=== PATIENT | male | born 1990 | race Caucasian/White ===

== ENCOUNTER 2017-05-06 02:52 | Observation (INO) ==
[2017-05-06] MEDS ORDERED: Ondansetron 4 MG/2 ML VIAL IVP ONE ×2 (03:11→06:18)
[2017-05-06] MEDS ORDERED: Ketorolac 30 MG/ML VIAL IVP ONE (03:11)
[2017-05-06] MEDS ORDERED: 0.9 % Sodium Chloride 1,000 ML IVC ONE (03:11)
[2017-05-06] MEDS ORDERED: *HR* FentaNYL (PF) 100 MCG/2 ML VIAL IVP ONE (03:12)
[2017-05-06 03:28] LABS: Bilirubin,Urine Negative (Negative); Blood,Urine Negative (Negative); Clarity,Urine Clear (Clear); Color,Urine Yellow (Yellow); Glucose,Urine (UA) Normal (Normal); Ketones,Urine Negative (Negative); Leukocyte Esterase,Urine Small (Negative); Nitrite,Urine Negative (Negative); PH,Urine 6.5 pH Units (5.0-8.0); Protein,Urine Trace mg/dL (Neg-Trace); Urobilinogen,Urine Normal (Normal)
[2017-05-06 03:30] LABS: Bacteria,Urine None Seen per hpf (None-Few); RBC,Urine 0-3 per hpf (0-3); Squamous Epithelial Cell,Urine Many per lpf (None-Few); WBC,Urine 30-50 per hpf (0-3)
[2017-05-06 03:39] LABS: Hyaline Casts,Urine Few per lpf (None-Few); Mucus,Urine Many (Few)
--- NOTE | 2017-05-06 03:39 | Emergency Department Note ---
Disposition Clinical Impression: Acute appendicitis, uncomplicated Disposition: Admitted As Inpatient Condition: Fair Time of Disposition: 05:27 Abdominal Pain HPI - General Chief Complaint: ED Abdominal Pain Stated Complaint: RLQ abd pain Time Seen by Provider: 05/06/17 03:38 Source: patient Mode of arrival: ambulatory Limitations: no limitations Nursing Notes Reviewed: Yes Vital Signs Reviewed: Yes - History of Present Illness HPI Narrative: 26-year-old male presents with 4-5 days of abdominal pain started initially mid abdomen with his right lower quadrant is currently is anxiety 6 out of 10 worse with movement last meal was last night at 8:00 in the evening. Patient history of dysuria for now currently just has abdominal pain he has some gas as well and some nausea but no emesis denies any hematochezia or melena. Patient has a remote history of Hodgkin's lymphoma that he was now in remission for currently no active chemotherapy. Patient endorses smoking cigarettes and marijuana denies any other IV drug use Pt Subjective Complaint: abdominal pain Consistency: intermittent Pain Severity: moderate Pain Scale: 7 Improves with: nothing Worsens with: nothing Associated symptoms: Reports: nausea, vomiting. Denies: diarrhea, fever, chills , dysuria, hematemesis, hematochezia Treatments prior to arrival: none - Related Data Allergies Allergy/AdvReac Type Severity Reaction Status Date / Time promethazine [From Phenergan] Allergy Muscle Pain Verified 05/06/17 02:55 All systems ED: reviewed and negative except as stated. Review of Systems: As Per HPI Constitutional: Denies: fever, chills Eyes: Denies: eye pain ENT ED: Denies: ear pain Cardiovascular: Denies: chest pain, palpitations Respiratory: Denies: dyspnea, sputum production Gastrointestinal: Reports: as per HPI, abdominal pain, nausea. Denies: vomiting , diarrhea Genitourinary: Denies: urgency, dysuria Musculoskeletal: Denies: back pain Integumentary: Denies: rash Neurological: Denies: headache, weakness Psychiatric: Denies: anxiety Abdominal Pain PMH - Past Medical History Medical history: Reports: non-contributory Male Surgical History: Reports: cancer surgery Psychiatric history: Reports: anxiety - Social History Smoking status: Current every day smoker Alcohol use: Reports: occasionally Drug use: Reports: marijuana Physical Exam - General Limitations: no limitations General appearance: alert, in no apparent distress - Head Head exam: atraumatic - Eye Eye exam: Present: normal appearance - ENT ENT exam: normal exam - Neck Neck exam: Present: normal inspection, full ROM - Chest Chest inspection: Present: normal inspection - Respiratory Respiratory exam: Present: normal lung sounds bilaterally - Cardiovascular Cardiovascular exam: Present: regular rate, normal rhythm - Abdominal Exam Abdominal exam: Present: soft, tenderness, distention, guarding, rebound, Rovsing's sign, tenderness at McBurney's Point. Absent: hernia Abdominal tenderness: Present: RLQ, moderate - Male exam: Present: normal inspection, normal testicular lie, circumcised. Absent : phimosis, penile swelling, scrotal swelling - Extremities Exam Extremities exam: Present: normal inspection, full ROM Course Course Narrative: 26-year-old male with findings concerning for acute appendicitis he has right lower quadrant pain McBurney's tenderness in Rovsing sign positive patient has moderate rebound and guarding on exam plan is for IV and by mouth CT abdomen and pelvis with IV contrast basic lab work and reassess. - Reevaluation(s) Reevaluation #1: Patient with evidence of uncomplicated appendicitis, admitted to Dr. MATTHEWS she will be placed nothing by mouth at this time plan is for surgical evaluation and possible laparoscopic appendectomy Mefoxitin started in ED. Time: 05:26 Vital Signs Temperature 98.1 F 05/06/17 02:55 Pulse Rate 76 05/06/17 02:55 Respiratory Rate 16 05/06/17 02:55 Blood Pressure 151/78 05/06/17 02:55 O2 Sat by Pulse Oximetry 98 05/06/17 02:55 Temperature 98.1 F 05/06/17 02:55 Pulse Rate 76 05/06/17 02:55 Respiratory Rate 18 05/06/17 05:12 Blood Pressure 134/77 05/06/17 05:12 O2 Sat by Pulse Oximetry 98 05/06/17 02:55 Oxygen Delivery Oxygen Delivery Room Air Abdominal Pain - Differential Diagnosis Differential Diagnosis: Likely: acute appendicitis, diverticulitis, diverticulosis, ischemic bowel - Medical Records Medical records reviewed: Yes I reviewed the patient's medical records. - Lab Data Lab results reviewed: Yes I reviewed the patient's lab results. Result diagrams: 05/06/17 03:38 05/06/17 03:38 Lab Results 05/06/17 05/06/17 05/06/17 Range/Units 03:05 03:38 03:38 WBC 10.8 (4.3-11.1) K/mcL RBC 4.39 (4.19-5.50) M/mcL Hgb 14.1 (12.9-16.9) g/dL Hct 40.2 (37.5-50.1) % MCV 91.6 (83.0-100.0) fL MCH 32.1 (28.0-33.3) pg MCHC 35.1 (31.6-35.5) g/dL RDW 11.9 (11.5-14.5) % Plt Count 225 (140-400) K/mcL MPV 9.9 (9.4-12.4) fL Immature Gran % 0.3 (0-4) % Seg Neutrophils % 74.0 % Lymphocytes % 19.4 % Monocytes % 5.5 % Eosinophils % 0.6 % Basophils % 0.2 % Neutrophils # 8.0 (1.6-8.9) K/mcL Lymphocytes # 2.1 (0.6-4.6) K/mcL Monocytes # 0.6 (0.0-1.3) K/mcL Eosinophils # 0.1 (0.0-0.6) K/mcL Basophils # 0.0 (0.0-0.2) K/mcL Sodium 138 (136-145) mEq/L Potassium 4.0 (3.5-5.1) mEq/L Chloride 107 (98-107) mEq/L Carbon Dioxide 27 (23-29) mEq/L BUN 18 (6-20) mg/dL Creatinine 1.02 (0.70-1.30) mg/dL Est GFR ( Amer) > 60 (> 60) Est GFR (Non-Af Amer) > 60 (> 60) BUN/Creatinine Ratio 18 (6-26) Glucose 106 H (70-105) mg/dL Calculated Osmolality 288 (280-300) Calcium 9.5 (8.6-10.3) mg/dL Total Bilirubin 0.5 (0.3-1.0) mg/dL Direct Bilirubin 0.1 (0.0-0.2) mg/dL Indirect Bilirubin 0.4 (0.0-1.2) mg/dL AST 17 (13-39) Units/L ALT 18 (7-52) Units/L Alkaline Phosphatase 86 (34-104) Units/L Serum Total Protein 7.1 (6.4-8.9) g/dL Albumin 4.8 (3.5-5.7) g/dL Globulin 2.3 L (2.4-3.5) g/dL Albumin/Globulin Ratio 2.1 (1.1-2.2) Lipase 18 (11-82) Units/L Urine Color Yellow (Yellow) Urine Clarity Clear (Clear) Urine pH 6.5 (5.0-8.0) pH Units Ur Specific [place] 1.030 H (1.010-1.025) Urine Protein Trace (Neg-Trace) mg/dL Urine Glucose (UA) Normal (Normal) mg/dL Urine Ketones Negative (Negative) mg/dL Urine Blood Negative (Negative) Urine Nitrite Negative (Negative) Urine Bilirubin Negative (Negative) Urine Urobilinogen Normal (Normal) mg/dL Ur Leukocyte Esterase Small H (Negative) Urine Microscopic RBC 0-3 (0-3) per hpf Urine Microscopic WBC 30-50 H (0-3) per hpf Ur Squamous Epith Cells Many H (None-Few) per lpf Urine Bacteria None Seen (None-Few) per hpf Hyaline Casts Few (None-Few) per lpf Urine Mucus Many H (Few) Ur Culture Indicated? NO. (NO) - Radiology Data Radiology results reviewed: Yes I reviewed the patient's radiology results. Abdomen/Pelvis CT 05/06/17 03:11 IMPRESSION: 1. Acute uncomplicated appendicitis. 2. Nonobstructing left nephrolithiasis. 3. Evidence of prior granulomatous disease. D/ / Edith Sharma MD / Edith Sharma MD Interpreting Provider: Edith Sharma MD Attestation Statement - Attestation Attestation: I, Angel Zhu MD, personally evaluated this patient and discussed their management with the resident physician. I reviewed the resident's note and agree with the documented findings, medical decision making, and plan of care. 26-year-old male presents to the emergency department with a complaint of right lower quadrant abdominal pain for the past 2 days. Patient states for about a week he has had some diffuse lower abdominal pain and also had some dysuria for the first several days. No gross hematuria. No flank pain. There has been no fever. Over the past few days the pain is localized to the right lower quadrant and become more severe. Some decreased appetite. Some nausea but no vomiting. The pain is worse with movement. On examination patient is a well-developed well-nourished well-appearing young male in no acute distress. He is alert and oriented 3. There is no cyanosis or diaphoresis. Breath sounds are clear and equal bilaterally. Heart regular rate and rhythm. Abdomen is soft with normal bowel sounds. There is moderate to severe tenderness in the right lower quadrant with guarding and rebound tenderness. No CVA tenderness. Labs reviewed. CT the abdomen and pelvis with IV contrast shows acute uncomplicated appendicitis. The surgeon on-call, Dr. Vela, was consulted and accepted admission of the patient.
[2017-05-06 03:48] LABS: Basophils % 0.2 %; Eosinophils # 0.1 K/mcL (0.0-0.6); Eosinophils % 0.6 %; Hematocrit 40.2 % (37.5-50.1); Hemoglobin 14.1 g/dL (12.9-16.9); Immature Granulocytes % 0.3 % (0-4); Lymphocytes # 2.1 K/mcL (0.6-4.6); Lymphocytes % 19.4 %; Mean Corpuscular HGB Conc 35.1 g/dL (31.6-35.5); Mean Corpuscular Hemoglobin 32.1 pg (28.0-33.3); Mean Corpuscular Volume 91.6 fL (83.0-100.0); Mean Platelet Volume 9.9 fL (9.4-12.4); Monocytes # 0.6 K/mcL (0.0-1.3); Monocytes % 5.5 %; Platelet Count 225 K/mcL (140-400); Red Blood Count 4.39 M/mcL (4.19-5.50); Red Cell Distribution Width 11.9 % (11.5-14.5)
[2017-05-06 03:58] LABS: Alanine Aminotransferase 18 Units/L (7-52); Albumin 4.8 g/dL (3.5-5.7); Albumin/Globulin Ratio 2.1 (1.1-2.2); Alkaline Phosphatase 86 Units/L (34-104); Aspartate Amino Transferase 17 Units/L (13-39); BUN/Creatinine Ratio 18 (6-26); Bilirubin,Direct 0.1 mg/dL (0.0-0.2); Bilirubin,Indirect 0.4 mg/dL (0.0-1.2); Bilirubin,Total 0.5 mg/dL (0.3-1.0); Blood Urea Nitrogen 18 mg/dL (6-20); Calcium 9.5 mg/dL (8.6-10.3); Carbon Dioxide 27 mEq/L (23-29); Chloride 107 mEq/L (98-107); Globulin 2.3 g/dL (2.4-3.5); Glucose 106 mg/dL (70-105); Lipase 18 Units/L (11-82); Osmolality,Calculated 288 (280-300); Sodium 138 mEq/L (136-145); Total Protein 7.1 g/dL (6.4-8.9); eGFR For Non-African Americans > 60 (> 60)
[2017-05-06] MEDS ORDERED: cefOXitin 1,000 MG in Water for inj. (sterile) 20 ML 10 ML IVPB ONE (04:33)
[2017-05-06] MEDS ORDERED: *HR* HYDROmorphone (PF) 1 MG/ML SYRINGE IVP PRN (06:19)
[2017-05-06] MEDS ORDERED: cefOXitin 2,000 MG in Water for inj. (sterile) 20 ML 20 ML IVP ONE (06:22)
[2017-05-06] MEDS ORDERED: 0.9 % Sodium Chloride 1,000 ML IVC SCH ×2 (06:30→10:15)
[2017-05-06] MEDS ORDERED: OXYCODONE Oral CONC 10 MG/0.5 ML ORAL.SYG SL PRN ×6 (08:43→19:23)
[2017-05-06] MEDS ORDERED: Ondansetron 4 MG/2 ML VIAL IVP PRN ×2 (09:28→19:23)
[2017-05-06] MEDS ORDERED: Naloxone 0.4 MG/ML INJ IVP PRN ×2 (09:28→19:23)
--- NOTE | 2017-05-06 09:29 | General Surg History&Physical ---
Date of Encounter: 05/06/17 Time of Encounter: 09:13 Assessment and Plan (1) Acute appendicitis, uncomplicated Current Visit: Yes Status: Acute The abdomen and pelvis on 05/06/2017 demonstrates acute uncomplicated appendicitis, nonobstructing left nephrolithiasis, and evidence of prior granulomatous disease. -NPO -Pain medications, anti-emetics, and Abx -IVF -OR today History of Present Illness Chief complaint: Abdominal Pain HPI: Mr. Haddad is a 26 year old male with a remote past medical history of Hodgkin's lymphoma who presented to [facility]2007 for worsening abdominal pain. Patient states his pain started approximately 4 days ago in the epigastric and lower quadrant regions. His pain was initially diffuse. Patient stated when his pain originally began 4 days ago, he had an episode where he has difficulty initiating urination. This resolved. He states his pain continued to worsen until becoming severe last night at which point his pain migrated to his right lower quadrant. Per his mother, he had a large meal around 8 PM last night and went to bed and awoke around 2 PM with severe pain. He denies any nausea or vomiting. He denies diarrhea, constipation, anorexia, fever, or chills. He denies recent illness. He denies dysuria, hematuria, shortness of breath, or recent weight loss. This morning, patient is resting comfortably. He states his pain is well-controlled on pain medication. He denies current nausea or vomiting. Past Med Surg Social Fam HX - Past Medical History Attestation: Yes The following information was validated with the patient. Source: patient, obtained from family Medical history: cancer (Hodgkin's lymphoma) Psychiatric history: anxiety - Past Surgical History Surgical History: no surgical history - Social History Smoking Status: Current every day smoker Packs per day: 1 Smokeless Tobacco Status: No Alcohol use: occasionally Drug use: marijuana - Family History Father Hx Family Cardiac Disorders: Yes (HTN) Mother Hx Family Cardiac Disorders: Yes (HTN) Medications and Allergies 3 Allergy/AdvReac Type Severity Reaction Status Date / Time promethazine [From Phenergan] Allergy Muscle Pain Verified 05/06/17 02:55 Review of Systems All systems PM: The remainder of the systems were reviewed and are negative - Constitutional as per HPI - Cardiovascular as per HPI - Respiratory as per HPI - Gastrointestinal as per HPI - Genitourinary as per HPI - Musculoskeletal as per HPI - Endocrine as per HPI General Surgery Exam Initial Vital Signs Temp Pulse Resp BP Pulse Ox 98.1 F 76 16 151/78 98 05/06/17 02:55 05/06/17 02:55 05/06/17 02:55 05/06/17 02:55 05/06/17 02:55 - General physical appearance well developed, well nourished, no distress, no pain - Respiratory normal expansion, normal respiratory effort, clear to percussion, clear to auscultation - Cardiovascular Cardiovascular exam: Present: RRR, no murmurs/rubs/gallops - Abdomen Abdomen general surgery: Present: bowel sounds present, soft. Absent: guarding , rebound, rigid, peritoneal Abdominal Tenderness: Present: RLQ (Mild) Hernia: Present: none - Neurologic Present: CN 2-12 grossly intact, normal coordination, normal sensation - Psychiatric Psychiatric general surgery: Present: A&Ox3, speech is normal, memory intact Results - Labs 05/06/17 03:38 05/06/17 03:38 Abnormal lab results Glucose 106 mg/dL (70-105) H 05/06/17 03:38 Globulin 2.3 g/dL (2.4-3.5) L 05/06/17 03:38 Ur Specific [place] 1.030 (1.010-1.025) H 05/06/17 03:05 Ur Leukocyte Esterase Small (Negative) H 05/06/17 03:05 Urine Microscopic WBC 30-50 per hpf (0-3) H 05/06/17 03:05 Ur Squamous Epith Cells Many per lpf (None-Few) H 05/06/17 03:05 Urine Mucus Many (Few) H 05/06/17 03:05 All other labs normal.
[2017-05-06] MEDS ORDERED: Acetaminophen 325 MG TABLET PO PRN ×2 (09:30→19:23)
[2017-05-06] MEDS ORDERED: MORPHINE SUL Oral CONC 10 MG/0.5 ML ORAL.SYG SL PRN ×2 (09:31→19:23)
[2017-05-06] MEDS ORDERED: cefOXitin 2,000 MG in Water for inj. (sterile) 20 ML 10 ML IVP SCH (14:00)
[2017-05-06] MEDS ORDERED: Lidocaine -MPF 2% 2 ML VIAL ONE (16:45)
[2017-05-06] MEDS ORDERED: *HR* FentaNYL (PF) 100 MCG/2 ML VIAL ONE ×2 (16:45→17:26)
[2017-05-06] MEDS ORDERED: *HR* Propofol 200 MG/20 ML VIAL IVP ONE (16:45)
[2017-05-06] MEDS ORDERED: Dexamethasone 4 MG/ML VIAL ONE (16:45)
[2017-05-06] MEDS ORDERED: Ondansetron 4 MG/2 ML VIAL ONE (16:45)
[2017-05-06] MEDS ORDERED: *HR* Rocuronium Bromide 50 MG/5 ML VIAL ONE (16:45)
[2017-05-06] MEDS ORDERED: *HR* Midazolam HCl 2 MG/2 ML VIAL ONE (16:46)
--- NOTE | 2017-05-06 17:03 | Anesthesia Evaluation PreOp ---
Date of Encounter: 05/06/17 Time of Encounter: 16:58 - Past History Planned Operation: Lap Appy Cardiac History: Denies any Significant Hx Pulmonary History: Denies Any Significant HX MUSIC PROFESSOR History: Denies Any Significant HX Other Medical History: Bleeding (Hx Hodgkins Lymphoma (age 20) currently in remission.) Anesthesia History: No Prior Anesthetic Complications, Past Anesthesia (Lymph node Bx) Alcohol Use: occasionally Drug use: marijuana Medications and Allergies 3 Allergy/AdvReac Type Severity Reaction Status Date / Time promethazine [From Phenergan] Allergy Muscle Pain Verified 05/06/17 02:55 - Meds/Allergy Pre-op Review Medications Reviewed: Yes Allergies Reviewed: Yes Beta Blockers on Current Med List: No Anesthesia Results - Labs 05/06/17 03:38 05/06/17 03:38 Laboratory Results WBC 10.8 K/mcL (4.3-11.1) 05/06/17 03:38 RBC 4.39 M/mcL (4.19-5.50) 05/06/17 03:38 Hgb 14.1 g/dL (12.9-16.9) 05/06/17 03:38 Hct 40.2 % (37.5-50.1) 05/06/17 03:38 MCV 91.6 fL (83.0-100.0) 05/06/17 03:38 MCH 32.1 pg (28.0-33.3) 05/06/17 03:38 MCHC 35.1 g/dL (31.6-35.5) 05/06/17 03:38 RDW 11.9 % (11.5-14.5) 05/06/17 03:38 Plt Count 225 K/mcL (140-400) 05/06/17 03:38 MPV 9.9 fL (9.4-12.4) 05/06/17 03:38 Immature Gran % 0.3 % (0-4) 05/06/17 03:38 Seg Neutrophils % 74.0 % 05/06/17 03:38 Lymphocytes % 19.4 % 05/06/17 03:38 Monocytes % 5.5 % 05/06/17 03:38 Eosinophils % 0.6 % 05/06/17 03:38 Basophils % 0.2 % 05/06/17 03:38 Neutrophils # 8.0 K/mcL (1.6-8.9) 05/06/17 03:38 Lymphocytes # 2.1 K/mcL (0.6-4.6) 05/06/17 03:38 Monocytes # 0.6 K/mcL (0.0-1.3) 05/06/17 03:38 Eosinophils # 0.1 K/mcL (0.0-0.6) 05/06/17 03:38 Basophils # 0.0 K/mcL (0.0-0.2) 05/06/17 03:38 Sodium 138 mEq/L (136-145) 05/06/17 03:38 Potassium 4.0 mEq/L (3.5-5.1) 05/06/17 03:38 Chloride 107 mEq/L (98-107) 05/06/17 03:38 Carbon Dioxide 27 mEq/L (23-29) 05/06/17 03:38 BUN 18 mg/dL (6-20) 05/06/17 03:38 Creatinine 1.02 mg/dL (0.70-1.30) 05/06/17 03:38 Est GFR ( Amer) > 60 (> 60) 05/06/17 03:38 Est GFR (Non-Af Amer) > 60 (> 60) 05/06/17 03:38 BUN/Creatinine Ratio 18 (6-26) 05/06/17 03:38 Glucose 106 mg/dL (70-105) H 05/06/17 03:38 Calculated Osmolality 288 (280-300) 05/06/17 03:38 Calcium 9.5 mg/dL (8.6-10.3) 05/06/17 03:38 Total Bilirubin 0.5 mg/dL (0.3-1.0) 05/06/17 03:38 Direct Bilirubin 0.1 mg/dL (0.0-0.2) 05/06/17 03:38 Indirect Bilirubin 0.4 mg/dL (0.0-1.2) 05/06/17 03:38 AST 17 Units/L (13-39) 05/06/17 03:38 ALT 18 Units/L (7-52) 05/06/17 03:38 Alkaline Phosphatase 86 Units/L (34-104) 05/06/17 03:38 Serum Total Protein 7.1 g/dL (6.4-8.9) 05/06/17 03:38 Albumin 4.8 g/dL (3.5-5.7) 05/06/17 03:38 Globulin 2.3 g/dL (2.4-3.5) L 05/06/17 03:38 Albumin/Globulin Ratio 2.1 (1.1-2.2) 05/06/17 03:38 Lipase 18 Units/L (11-82) 05/06/17 03:38 Urine Color Yellow (Yellow) 05/06/17 03:05 Urine Clarity Clear (Clear) 05/06/17 03:05 Urine pH 6.5 pH Units (5.0-8.0) 05/06/17 03:05 Ur Specific [place] 1.030 (1.010-1.025) H 05/06/17 03:05 Urine Protein Trace mg/dL (Neg-Trace) 05/06/17 03:05 Urine Glucose (UA) Normal mg/dL (Normal) 05/06/17 03:05 Urine Ketones Negative mg/dL (Negative) 05/06/17 03:05 Urine Blood Negative (Negative) 05/06/17 03:05 Urine Nitrite Negative (Negative) 05/06/17 03:05 Urine Bilirubin Negative (Negative) 05/06/17 03:05 Urine Urobilinogen Normal mg/dL (Normal) 05/06/17 03:05 Ur Leukocyte Esterase Small (Negative) H 05/06/17 03:05 Urine Microscopic RBC 0-3 per hpf (0-3) 05/06/17 03:05 Urine Microscopic WBC 30-50 per hpf (0-3) H 05/06/17 03:05 Ur Squamous Epith Cells Many per lpf (None-Few) H 05/06/17 03:05 Urine Bacteria None Seen per hpf (None-Few) 05/06/17 03:05 Hyaline Casts Few per lpf (None-Few) 05/06/17 03:05 Urine Mucus Many (Few) H 05/06/17 03:05 Ur Culture Indicated? NO. (NO) 05/06/17 03:05 Impressions Abdomen/Pelvis CT 05/06/17 03:11 IMPRESSION: 1. Acute uncomplicated appendicitis. 2. Nonobstructing left nephrolithiasis. 3. Evidence of prior granulomatous disease. D/ / Edith Sharma MD / Edith Sharma MD Interpreting Provider: Ediht Sharma MD Anesthesia Exam Vital Signs Temp Pulse Resp BP Pulse Ox 05/06/17 15:06 98.7 F 82 16 146/80 96 05/06/17 11:28 98.4 F 52 12 123/56 98 05/06/17 06:24 97.8 F 60 16 131/69 97 05/06/17 05:12 18 134/77 05/06/17 02:55 98.1 F 76 16 151/78 98 Intake and Output 05/06/17 05/06/17 05/06/17 07:59 15:59 23:59 Intake Total 1010 / 1010 130 / 130 Balance 1010 / 1010 130 / 130 Intake: IV Fluids 1010 / 1010 130 / 130 0.9 % Sodium Chloride 1,000 ML 1000 / 1000 100 / 100 @ 75 mls/hr IVC .[id number] KATERINE Rx #:[id number] Mefoxin 2,000 MG In Water for 30 / 30 inj. (sterile) 20 ML @ 300 mls/ hr IVP ONCE ONE Rx#:[id number] Mefoxin 1,000 MG In Water for 10 / 10 inj. (sterile) 10 ML @ 150 mls/ hr IVPB ONCE ONE Rx#:[id number] Other: Stool Characteristics Normal for Patient Weight 72.575 kg Patient Weight 05/06/17 23:59 Weight 72.575 kg Height: 5'11" Weight: 160# BMI = 22 NPO (# of Hours): MNOc Pain Scale Used: Numeric (1 - 10) - HEENT Pupil (Motor): Pupils equal, EOMI Mallampati: II Teeth: Normal Oral Opening: Greater than 3 - MUSIC PROFESSOR LOC: Oriented MUSIC PROFESSOR Motor: Normal RUE, Normal LUE, Normal RLE, Normal LLE, Normal Face MUSIC PROFESSOR Sensory: Normal: RUE, LUE, RLE, LLE, Face - Cardiac Rhythm: Regular Murmur: None - Pulmonary Breath Sounds: bilateral Clear Respiratory Effort: Symmetrical Anesthesia Assess/Plan ASA Score: 2 (Smoker, Hx Hodgkins Lymphoma) Modified Dike Scale for Level of Consciousness: Cooperative, oriented, and tranquil Anesthetic Plan: General Monitoring Plan: Standard Monitors Recovery Plan: PACU Anes Supervising Prov Stmt: Pt seen/evaluated, R&B discussed, questions answered and consent obtained. Stefani Onofre MD
[2017-05-06] MEDS ORDERED: *HR* HYDROmorphone 2 MG TABLET PO PRN (17:08)
[2017-05-06] MEDS ORDERED: *HR* HYDROcodone/Acet 7.5/325 mg TABLET PO PRN ×2 (17:08→19:23)
[2017-05-06] MEDS ORDERED: *HR* OxyCODONE Immed Rel 5 MG TABLET PO PRN (17:08)
[2017-05-06] MEDS ORDERED: Lidocaine -MPF 4% 5 ML AMPUL ONE (17:12)
[2017-05-06] MEDS ORDERED: Neostigmine Methylsulfate 3 MG/3 ML SYRINGE ONE (17:21)
[2017-05-06] MEDS ORDERED: Acetaminophen IV 1,000 MG/100 ML INFUS..BTL IVPB ONE ×2 (17:30→19:23)
--- NOTE | 2017-05-06 17:30 | Operative Note ---
Date of procedure: 05/06/17 Pre-op diagnosis: Appendicitis Post-op diagnosis: same Procedure: Laparoscopic appendectomy Anesthesia: DIVINEA Surgeon: Kurtis Vela Was there an assistant manager quality management present: Yes Livestock Haulier: Padmini De La Cruz Estimated blood loss (cc): 5 Specimen: Appendix Condition: stable Disposition: same day Procedure in Detail: After informed consent, patient was taken to the operating room placed in supine position. After adequate sedation anesthesia the abdomen was prepped and draped. A 12 mm cannula was placed in the umbilicus. A 5 mm cannulas placed in suprapubic region and the left lower quadrant. Camera was inserted and the abdomen after a pneumoperitoneum. 2 [place] graspers were used to identify the base of the appendix. A appendiceal window was created. A NICO endoscopic stapler was placed across the base. A vascular load was placed across the mesoappendix. Once the appendix was was placed in an Endobag and removed through the umbilicus. The right lower quadrant was suctioned dry no bleeding was identified. Remainder the pneumoperitoneum was evacuated. The umbilicus was closed with an 0 Vicryl suture in [id number] fashion. Skin was closed with 4-0 Vicryl suture and Dermabond.
[2017-05-06] MEDS ORDERED: Ketorolac 30 MG/ML VIAL ONE (17:34)
[2017-05-06] MEDS: MORPHINE SUL Oral CONC 10 MG/0.5 ML ORAL.SYG SL PRN ×2 (18:05→18:15)
[2017-05-06] MEDS ORDERED: cloNIDine HCl 0.1 MG TABLET PO ONE (18:29)
--- NOTE | 2017-05-06 19:08 | Anesthesia Evaluation Post Op ---
Date of Encounter: 05/06/17 Time of Encounter: 19:07 - Vital Signs Vital Signs: Vital Signs/O2 Sat/Glucose, Most Current Temp Pulse Resp BP Pulse Ox 05/06/17 18:50 99.0 F 60 16 160/97 98 05/06/17 18:40 99.0 F 63 16 169/103 98 05/06/17 18:30 99.0 F 63 16 153/99 98 05/06/17 18:20 99.7 F H 63 16 153/99 98 05/06/17 18:10 99.2 F 89 16 149/91 98 05/06/17 18:00 99.2 F 98 16 137/75 100 - Lungs Lungs: Clear Ascult./Percussion - Airway Airway: Non-obstructed - Cardiovascular Regular Rate - Mental Status Mental Status: Alert & Oriented, Answers Appropriately - Pain Pain Scale: 7 Pain Scale used: Numeric (1 - 10) - Nausea Vomiting Nausea Vomiting: Not Present - Hydration Hydration: Ice chips, Has not voided - Discharge PostOp Status: Transfer Patient to floor Anes Supervising Prov Stmt: Pt seen/evaluated, VSS and pt has met criteria for discharge to floor. - MD [place]
[2017-05-06] MEDS: 0.9 % Sodium Chloride 1,000 ML IVC SCH (20:28)
[2017-05-06] MEDS: cefOXitin 2,000 MG in Water for inj. (sterile) 20 ML 10 ML IVP SCH (22:13)
[2017-05-07] MEDS: 0.9 % Sodium Chloride 1,000 ML IVC SCH (04:48)
[2017-05-07] MEDS: cefOXitin 2,000 MG in Water for inj. (sterile) 20 ML 10 ML IVP SCH (05:52)
[2017-05-07 07:34] VITALS: BP 116/55
--- NOTE | 2017-05-07 09:38 | Discharge Summary ---
Date of Encounter: 05/07/17 Time of Encounter: 09:40 - Discharge Diagnosis (1) Acute appendicitis, uncomplicated Priority: Primary Status: Resolved General Surgery Exam Initial Vital Signs Temp Pulse Resp BP Pulse Ox 98.1 F 76 16 151/78 98 05/06/17 02:55 05/06/17 02:55 05/06/17 02:55 05/06/17 02:55 05/06/17 02:55 - General physical appearance well developed, well nourished, no distress - Neck no masses, trachea midline, no venous distension - Respiratory normal expansion, normal respiratory effort, clear to auscultation - Cardiovascular Cardiovascular exam: Present: RRR, 15, 16 - Abdomen Abdomen general surgery: Present: bowel sounds present, soft, tender (Expected postoperative) Hernia: Present: none - Incision Incision: Present: clean and dry, intact - Integumentary Integumentary general surgery: Present: warm and dry, no abnormal pigmentation - Neurologic Present: CN 2-12 grossly intact, normal coordination, normal sensation - Musculoskeletal Present: normal gait, normal posture - Psychiatric Psychiatric general surgery: Present: A&Ox3, appropriate, oriented to person, oriented to place, oriented to time, speech is normal, memory intact - Hospital Course Hospital course: Mr. Haddad is a 26 year old male who presented on 05/06/2017 for complaints of right lower quadrant pain. His CT of the abdomen and pelvis on this date demonstrated acute uncomplicated appendicitis. He was taken to the operating room where he underwent an uncomplicated laparoscopic cholecystectomy. He is ambulating and voiding without difficulty, tolerating a regular diet without nausea or vomiting, abdominal discomfort is well-controlled, vital signs are stable, and he is afebrile. We will begin discharge planning to home with a follow-up in the office on May 22 at 9 AM. Time spent discussing smoking cessation with patient: 3 to 10 minutes - Time Spent with Patient Total time spent providing and/or coordinating discharge services: - Discharge Medications Prescriptions: Docusate Sodium [Colace] 100 mg PO BID PRN 15 Days #30 capsule PRN Reason: Constipation HYDROcodone/Acet 5/325 mg [Keystone 5-325 mg] 1 tab PO Q6H PRN 7 Days #28 tab PRN Reason: Postoperative pain Home Medications: Docusate Sodium [Colace] 100 mg PO BID PRN 15 Days #30 capsule 05/07/17 [Rx] HYDROcodone/Acet 5/325 mg [Keystone 5-325 mg] 1 tab PO Q6H PRN 7 Days #28 tab 05/07 [Rx] Allergies/Adverse Reactions: 3 Allergy/AdvReac Type Severity Reaction Status Date / Time promethazine [From Phenergan] AdvReac Muscle Pain Verified 05/07/17 08:50 Date of admission: 05/06/17 04:58 Primary care physician: PCP NONE Discharging clinician: Nandini Ayala Anticipated date of discharge: 05/07/17 - Patient Status Disposition: Home, Self-Care Condition: Fair Functional capacity at discharge: independent ambulation Overall status at discharge: patient is progressing back to baseline - Discharge Instructions Instructions: Laparoscopic Appendectomy (DC), Cigarette Smoking and Your Health (GEN), How to Stop Smoking (DC) Follow Up With: NONE,PCP [Primary Care Provider] - Nandini Ayala [employer]PER[employer] [Advanced Practice Nurse] - 05/22/17 9:00 am Forms: Inpatient Work/School Release Additional Instructions: General Surgical Discharge Instructions 1. No pushing, pulling, or lifting greater than 15 lbs for 2-4 weeks (depending upon procedure). 2. You may shower beginning today, but no tub baths, soaking, or swimming for 2 weeks. 3. You may resume driving when you are off narcotics and are safe to react in a car. 4. Take ibuprofen every 8 hours for discomfort. If this does not relieve discomfort, you may take the as needed hydrocodone. Take narcotics as directed. Do not take more narcotics then directed and do not share your narcotics with any other person. Do not drink alcohol while on narcotics. 5. Take stool softeners (Colace) or a water based laxative (Miralax) while taking narcotics. You may hold for loose stools. 6. Report any fevers greater than 100.5F, increase abdominal discomfort, drainage that looks like pus, increased redness or pain at the surgical site, or any vomiting. 7. Report any pain in the calves, shortness of breath, or rapid heartbeat. 8. Follow-up in the office as directed. 9. If you were prescribed antibiotics, do not stop them without talking to your provider. - Diet and Activity Activity: increase activity as tolerated Diet: advance to your usual diet
== END 2017-05-07 11:16 | disposition home or self-care (01) ==
LOC: EMEROO 02:52 → 1NENUPED 02:52 → 3BNU 14:57
PROVIDERS: ADMIT Surgery; ATTEND Surgery